=== PATIENT | male | born 1955 | race Caucasian/White ===

== ENCOUNTER 2023-04-25 11:52 | Emergency (ER) | payer MEDICARE, SELFPAY ==
[2023-04-25 11:53] VITALS: BP 142/82
--- NOTE | 2023-04-25 12:27 | ED.GENMED ---
History of Present Illness
General
Chief Complaint: Allergic Reaction
Source: patient
Exam Limitations: none
Time Seen by Provider: 04/25/23 12:16
Travel History
Have you had any contact with someone who has COVID-19?: No
Do you have any symptoms of coronavirus? Fever > 100 degrees, chills, cough, shortness of breath, sore throat, loss of taste or smell, muscle aches, or headache?: No
History of Present Illness
History of Present Illness:
67-year-old male presents with diffuse itchy rash that started yesterday getting worse today. He denies any nausea or vomiting. He has a history of esophageal cancer requiring chemotherapy radiation and recent esophagectomy. This was performed 6
weeks ago. He is able to drink water. He tried Benadryl at home which yesterday it seemed to help however today the rash is worse. He admits to taking melatonin over the past 5 days. This was new.
Phy Exam
Physical Exam
Physical Exam:
General: Well-appearing male no acute respiratory distress
HEENT: Normocephalic atraumatic mucosa moist neck is supple
Heart: Regular rate and rhythm
Lungs: Clear no stridor or wheeze
Skin: Erythematous urticarial type rash over the face trunk arms and legs. This is blanchable.
Extremities: No gnosis
Course
Orders/Labs/Results
Orders:
Orders
04/25/23 12:26
Dexamethasone Sod Phosphate [Decadron] 10 mg IV NOW STA
Diphenhydramine [Benadryl] 25 mg IV NOW STA
Famotidine [Pepcid] 20 mg IV NOW STA
04/25/23 13:52
Electrocardiogram (*1) Urgent
Reason for Study: Shortness of Breath
04/25/23 13:53
EKG- Treatment ONCE
Vital Signs
Initial and Last Documented VS:
Initial Vital Signs
Temp Pulse Resp BP
98.3 F 94 18 142/82
04/25/23 11:53 04/25/23 11:53 04/25/23 11:53 04/25/23 11:53
Last Documented Vital Signs
Temp Pulse Resp BP Pulse Ox
98.3 F 94 18 142/82 97
04/25/23 11:53 04/25/23 11:53 04/25/23 11:53 04/25/23 11:53 04/25/23 13:16
MDM/Problems Addressed
Differential Diagnosis Includes:
Rash. This is most consistent with adverse reaction possible allergic reaction. No respiratory distress. No vomiting. Try Decadron Benadryl Pepcid. Do not suspect infectious source given the lack of fever
*Critical Care Note
Total Time (30-74mins, 75-104mins- exclusive of procedures): Not Applicable
Update Note
Update Note:
Patient reexamined rash is completely resolved. EKG was performed which shows left bundle branch block. states he has been diagnosed with this recently by his order picker. He is currently has a Holter monitor on. Cardiology care is through
[place]. At this point no need for any further intervention. Stable for discharge
ED Attending Note
-
Portions of this chart may have been created with voice recognition software.� Occasional wrong word or��sound alike� substitutions may have occurred due to the inherent limitations of voice recognition software.
Discharge Plan
Departure
Patient Disposition: Home (Routine Discharge)
Date of Disposition: 04/25/23
Time of Disposition: 14:43
Patient with high blood pressure during this ER visit?: No
Discharge Problem:
Allergic reaction
Instructions: Hives (DC)
Prescriptions:
New
prednisolone 15 mg/5 mL solution
30 mg feeding tube DAILY Qty: 40 0RF
Referrals:
Leslie Wadsworth MD [Family Provider] -
Activity Restrictions/Additional Instructions:
You may continue with Benadryl every 4 hours if needed. Use prednisolone liquid through the feeding tube daily over the next 4 days. Return for worsening symptoms otherwise follow-up with your treating physicians
Interventions
Interventions:
*Risk Screen - Suicide Last Done: 04/25/23 11:53
*General Assessment Last Done: 04/25/23 11:53
*Neglect/Abuse Screening Last Done: 04/25/23 11:53
ED- Fall Risk Assessment Last Done: 04/25/23 13:16
*ED COVID-19 Vaccine History Last Done: 04/25/23 13:16
ED- Cardiac Assessment Last Done: 04/25/23 13:16
ED- Pulmonary Assessment Last Done: 04/25/23 13:16
ED-Skin Assessment Last Done: 04/25/23 13:16
[2023-04-25] MEDS: BENADRYL 25 MG IV (12:44)
[2023-04-25] MEDS: DECADRON 10 MG IV (12:45)
[2023-04-25] MEDS: PEPCID 20 MG IV (12:45)
[2023-04-25 15:14] VITALS: BP 142/81
== END 2023-04-25 15:34 | disposition home or self-care (01) ==
LOC: EMR 11:52
PROVIDERS: EMERGENCY PHYSICIAN Emergency Medicine; FAMILY PHYSICIAN Student in an Organized Health Care Education/Training Program
DX: T78.40XA Allergy, unspecified, initial encounter (principal); R21 Rash and other nonspecific skin eruption; I44.7 Left bundle-branch block, unspecified
CPT/HCPCS: 99284; 96374; 96375 ×2; 93005

== ENCOUNTER 2023-06-01 08:09 | Emergency (ER) | payer MEDICARE, SELFPAY ==
--- NOTE | 2023-06-01 08:26 | ED.GENMED ---
History of Present Illness
General
Chief Complaint: Male Genito-Urinary Symptoms
Source: patient and family
Time Seen by Provider: 06/01/23 08:18
Travel History
Have you had any contact with someone who has COVID-19?: No
Do you have any symptoms of coronavirus? Fever > 100 degrees, chills, cough, shortness of breath, sore throat, loss of taste or smell, muscle aches, or headache?: No
History of Present Illness
History of Present Illness:
67-year-old gentleman brought to the emergency room by ambulance due to urinary retention. Patient has been able to urinate for several hours. Patient is under hospice care due to metastatic cancer. Hospice nurse was unable to pass a Ballesteros
catheter prompting the patient's referral to the emergency room.
Phy Exam
Physical Exam
Physical Exam:
General: Awake, Alert, Oriented X1. Appears chronically ill
Vitals: unremarkable
Head: Atraumatic
Eyes: Pupils equal, EOMI
Throat: Airway intact, no exudates, dry mucosa
Neck: Trachea midline
Lungs: Clear and equal b/l
Heart: Regular rate, no murmurs
Abd: Soft, Nontender, No pulsatile mass
Neuro: Grossly nonfocal
Skin: Warm, dry, no rash
Extremities: pulses equal b/l, no edema
Course
Vital Signs
Initial and Last Documented VS:
Initial Vital Signs
Temp Pulse Resp
98.0 F 91 20
06/01/23 08:10 06/01/23 08:10 06/01/23 08:10
Last Documented Vital Signs
Temp Pulse Resp BP Pulse Ox
98.0 F 65 20 119/83 95
06/01/23 08:10 06/01/23 10:25 06/01/23 10:25 06/01/23 10:25 06/01/23 10:25
MDM/Problems Addressed
MDM/Problems Addressed:
Patient presented with urinary retention. A Ballesteros was placed here without difficulty. He is under hospice care and therefore no further testing will be ordered. Will discharge with a Ballesteros in place.
*Critical Care Note
Total Time (30-74mins, 75-104mins- exclusive of procedures): Not Applicable
ED Attending Note
-
Portions of this chart may have been created with voice recognition software.� Occasional wrong word or��sound alike� substitutions may have occurred due to the inherent limitations of voice recognition software.
Discharge Plan
Departure
Patient Disposition: Home (Routine Discharge)
Date of Disposition: 06/01/23
Time of Disposition: 08:29
Patient with high blood pressure during this ER visit?: No
Condition: Good
Discharge Problem:
Acute urinary retention
Instructions: How to Care for Your Ballesteros Catheter, Male, Urinary Retention (DC)
Prescriptions:
No Action
prednisolone 15 mg/5 mL solution
30 mg feeding tube DAILY Qty: 40 0RF
Interventions
Interventions:
*Risk Screen - Suicide Last Done: 06/01/23 08:10
*General Assessment Last Done: 06/01/23 08:10
*Neglect/Abuse Screening Last Done: 06/01/23 08:10
*Nursing Disposition Last Done: 06/01/23 10:25
ED-Male Genitourinary Assessment Last Done: 06/01/23 09:00
Discharge Date and Time
Discharge Date/Time: 06/01/23 10:29
Print Language: CITIZEN [place]
[2023-06-01 10:25] VITALS: BP 119/83
== END 2023-06-01 10:29 | disposition home or self-care (01) ==
LOC: EMR 08:09
PROVIDERS: EMERGENCY PHYSICIAN Emergency Medicine; FAMILY PHYSICIAN Student in an Organized Health Care Education/Training Program
DX: R33.9 Retention of urine, unspecified (principal)
CPT/HCPCS: 99283; 51702